=== PATIENT | male | born 1960 | race Two or more races ===

== ENCOUNTER → 2017-02-02 | Outpatient (CLI) | payer OTHER ==
[2017-02-02 09:45] LABS: ALBUMIN 3.9 GM/DL (3.2-5.2); ALBUMIN/GLOBULIN RATIO 1.34 (1.00-1.93); ALKALINE PHOSPHATASE 89 U/L (45-117); ALT/SGPT 29 U/L (12-78); ANION GAP 8 MEQ/L (8-16); AST/SGOT 13 U/L (15-37); BILIRUBIN,TOTAL 0.8 MG/DL (0.2-1.0); BLOOD UREA NITROGEN 17 MG/DL (7-18); CALCIUM LEVEL 8.4 MG/DL (8.5-10.1); CARBON DIOXIDE LEVEL 26 MEQ/L (21-32); CHLORIDE LEVEL 105 MEQ/L (98-107); CHOLESTEROL LEVEL 200 MG/DL (<200); CREATININE FOR GFR 0.83 MG/DL (0.70-1.30); GLOMERULAR FILTRATION RATE > 60.0 (>56); GLUCOSE, FASTING 103 MG/DL (70-105); POTASSIUM SERUM 4.3 MEQ/L (3.5-5.1); SODIUM LEVEL 139 MEQ/L (136-145); TOTAL PROTEIN 6.8 GM/DL (6.4-8.2); TRIGLYCERIDES LEVEL 92 MG/DL (<150)
== END ==
LOC: M WUC 08:04
PROVIDERS: ATTEND Nurse Practitioner Family
DX: N40.1 Benign prostatic hyperplasia with lower urinary tract symptoms (principal); R03.0 Elevated blood-pressure reading, without diagnosis of hypertension

== ENCOUNTER → 2017-03-30 | Outpatient (REF) | payer OTHER ==
[2017-03-30 18:47] LABS: CALCIUM OXALATE CRYSTALS SMALL
== END ==
LOC: M SMT 17:10
PROVIDERS: ATTEND Nurse Practitioner Women's Health
DX: R35.0 Frequency of micturition (principal)

== ENCOUNTER 2019-01-06 08:08 | Day surgery (SDC) | payer OTHER ==
[~2019-01-06] VITALS: Ht 167.6 cm; Wt 138.3 kg
[~2019-01-06 08:08] MED LIST: FLOM0.4C39; LIDOCAINE 2% INJ 100 MG/5 ML SDV (FOR ANES.) As Ordered ONE; OMEP40CA2; PANT40TA3; PROPOFOL 200 MG/20 ML VIAL As Ordered ONE
[2019-01-06] MEDS ORDERED: fentaNYL 100 MCG/2 ML INJECTION (J3010) As Ordered ONE (08:28)
[2019-01-06] MEDS ORDERED: NS 1,000 ML IV SCH (08:30)
[2019-01-06] MEDS ORDERED: PROPOFOL 200 MG/20 ML VIAL As Ordered ONE (09:29)
--- NOTE | 2019-01-06 09:56 | ROOR ---
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 Procedure: Pre-Anesthesia Assessment: - Prior to the procedure, a History and Physical was performed, and patient medications and allergies were reviewed. The patient is competent. The risks and benefits of the procedure and the sedation options and risks were discussed with the patient. All questions were answered and informed consent was obtained. Patient identification and proposed procedure were verified by the physician, the nurse and the anesthesiologist in the procedure room. Mental Status Examination: alert and oriented. Airway Examination: normal oropharyngeal airway and neck mobility. Respiratory Examination: clear to auscultation. CV Examination: normal. Prophylactic Antibiotics: The patient does not require prophylactic antibiotics. Prior Anticoagulants: The patient has taken no previous anticoagulant or antiplatelet agents. ASA Grade Assessment: III - A patient with severe systemic disease. After reviewing the risks and benefits, the patient was deemed in satisfactory condition to undergo the procedure. The anesthesia plan was to use monitored anesthesia care (MAC). Immediately prior to administration of medications, the patient was re-assessed for adequacy to receive sedatives. The heart rate, respiratory rate, oxygen saturations, blood pressure, adequacy of pulmonary ventilation, and response to care were monitored throughout the procedure. The physical status of the patient was re-assessed after the procedure. The Endoscope was introduced through the mouth, and advanced to the second part of duodenum. The upper GI endoscopy was accomplished without difficulty. The patient tolerated the procedure well. Findings: No endoscopic abnormality was evident in the esophagus to explain the patient's complaint of dysphagia. Biopsies were obtained from the proximal and distal esophagus with cold forceps for histology of suspected eosinophilic esophagitis. Verification of patient identification for the specimen was done by the physician and nurse using the patient's name, date and medical record number. Estimated blood loss was minimal. The Z-line was regular and was found in the distal esophagus. Patchy mild inflammation characterized by erythema and granularity was found in the gastric antrum. Biopsies were taken with a cold forceps for Helicobacter pylori testing. The duodenal bulb and second portion of the duodenum were normal. Biopsies for histology were taken with a cold forceps for evaluation of celiac disease. Impression: - No endoscopic esophageal abnormality to explain patient's dysphagia. Biopsied. - Z-line regular, in the distal esophagus. - Gastritis. Biopsied. - Normal duodenal bulb and second portion of the duodenum. Biopsied. Recommendation: - Patient has a contact number available for emergencies. The signs and symptoms of potential delayed complications were discussed with the patient. Return to normal activities tomorrow. Written discharge instructions were provided to the patient. - High fiber diet. - Continue present medications. - Follow an antireflux regimen. - Await pathology results. - Based on the biopsy results you will receive a phone call from GI clinic in 2-3 weeks to review the pathology results AND/OR your results will be faxed to your Primary care physician. - Return to primary care physician. Flavio Danielle MD Flavio Danielle MD 01/06/2019 9:56:24 AM Electronically signed by Flavio Danielle MD Number of Addenda: 0 Note Initiated On: 01/06/2019 8:36 AM Estimated Blood Loss: Estimated blood loss was minimal.
[2019-01-06 10:13] VITALS: BP 110/69
--- NOTE | 2019-01-06 10:35 | ROOR ---
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 Procedure: Pre-Anesthesia Assessment: - Prior to the procedure, a History and Physical was performed, and patient medications and allergies were reviewed. The patient is competent. The risks and benefits of the procedure and the sedation options and risks were discussed with the patient. All questions were answered and informed consent was obtained. Patient identification and proposed procedure were verified by the physician, the nurse and the anesthesiologist in the procedure room. Mental Status Examination: alert and oriented. Airway Examination: normal oropharyngeal airway and neck mobility. Respiratory Examination: clear to auscultation. CV Examination: normal. Prophylactic Antibiotics: The patient does not require prophylactic antibiotics. Prior Anticoagulants: The patient has taken no previous anticoagulant or antiplatelet agents. ASA Grade Assessment: III - A patient with severe systemic disease. After reviewing the risks and benefits, the patient was deemed in satisfactory condition to undergo the procedure. The anesthesia plan was to use monitored anesthesia care (MAC). Immediately prior to administration of medications, the patient was re-assessed for adequacy to receive sedatives. The heart rate, respiratory rate, oxygen saturations, blood pressure, adequacy of pulmonary ventilation, and response to care were monitored throughout the procedure. The physical status of the patient was re-assessed after the procedure. The Colonoscope was introduced through the anus and advanced to the cecum, identified by appendiceal orifice and ileocecal valve. The colonoscopy was performed without difficulty. The patient tolerated the procedure well. The quality of the bowel preparation was good. The ileocecal valve, appendiceal orifice, and rectum were photographed. Scope insertion time was 3 minutes. Scope withdrawal time was 12 minutes. The total duration of the procedure was 15 minutes. Findings: The perianal and digital rectal examinations were normal. The ileocecal valve was moderately lipomatous. Biopsies were taken with a cold forceps for histology. Verification of patient identification for the specimen was done by the physician and nurse using the patient's name, date and medical record number. Estimated blood loss was minimal. Five sessile polyps were found in the recto-sigmoid colon and transverse colon. The polyps were 5 to 9 mm in size. These polyps were removed with a cold snare. Resection and retrieval were complete. Multiple small and large-mouthed diverticula were found from sigmoid to ascending colon. There was no evidence of diverticular bleeding. Non-bleeding external and internal hemorrhoids were found during retroflexion. The hemorrhoids were medium-sized. Impression: - Lipomatous ileocecal valve. Biopsied. - Five 5 to 9 mm polyps at the recto-sigmoid colon and in the transverse colon, removed with a cold snare. Resected and retrieved. - Severe diverticulosis from sigmoid to ascending colon. There was no evidence of diverticular bleeding. - Non-bleeding external and internal hemorrhoids. Recommendation: - Patient has a contact number available for emergencies. The signs and symptoms of potential delayed complications were discussed with the patient. Return to normal activities tomorrow. Written discharge instructions were provided to the patient. - High fiber diet. - Continue present medications. - Await pathology results. - Repeat colonoscopy in 1- 3 years for surveillance based on pathology results. - Based on the biopsy results you will receive a phone call from GI clinic in 2-3 weeks to review the pathology results AND/OR your results will be faxed to your Primary care physician. - Return to primary care physician. Flavio Danielle MD Flavio Danielle MD 01/06/2019 10:35:18 AM Electronically signed by Flavio Danielle MD Number of Addenda: 0 Note Initiated On: 01/06/2019 8:36 AM Estimated Blood Loss: Estimated blood loss was minimal.
== END 2019-01-06 10:44 | disposition home or self-care (01) ==
LOC: M OPP 08:08
PROVIDERS: ATTEND Internal Medicine Gastroenterology
DX: Z12.11 Encounter for screening for malignant neoplasm of colon (principal); Z86.010 Personal history of colon polyps; K63.89 Other specified diseases of intestine; D12.7 Benign neoplasm of rectosigmoid junction; D12.3 Benign neoplasm of transverse colon; K64.8 Other hemorrhoids; K57.30 Diverticulosis of large intestine without perforation or abscess without bleeding; R13.10 Dysphagia, unspecified; K29.70 Gastritis, unspecified, without bleeding; R12 Heartburn; Z79.899 Other long term (current) drug therapy
CPT/HCPCS: 43239; 45380; 45385; 88305; J3010

== ENCOUNTER → 2019-02-07 | Outpatient (CLI) | payer OTHER ==
[~2019-02-07] MED LIST changes: -LIDOCAINE 2% INJ 100 MG/5 ML SDV (FOR ANES.) As Ordered ONE; -PROPOFOL 200 MG/20 ML VIAL As Ordered ONE
--- NOTE | 2019-02-07 15:04 | REP ---
Left shoulder four views: There is no fracture or dislocation. 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 The glenohumeral joint is unremarkable. There are no calcifications or foreign bodies. Mineralization is normal. Impression: There is no fracture or dislocation. Acromioclavicular osteoarthritis. Electronically Signed by Michael Davis MD 02/07/2019 02:56 P
== END ==
LOC: M WUC 13:38
PROVIDERS: ATTEND Physician Assistant
DX: S43.402D Unspecified sprain of left shoulder joint, subsequent encounter (principal); W18.30XD Fall on same level, unspecified, subsequent encounter; Y92.009 Unspecified place in unspecified non-institutional (private) residence as the place of occurrence of the external cause

== ENCOUNTER → 2019-03-03 | Outpatient (CLI) | payer OTHER ==
[~2019-03-03] MED LIST changes: -OMEP40CA2; +OMEP40CA97
--- NOTE | 2019-03-03 17:17 | REP ---
MRI LEFT SHOULDER: TECHNIQUE: Axial T2 fat sat, gradient echo, sagittal oblique T2 fat sat, coronal oblique T1, T2 fat sat. There is ill-defined high signal on T2 weighted images involving the supraspinatus and infraspinatus tendons compatible with a moderate degree of tendinopathy with possibly a partial tear of the distal infraspinatus tendon. There are moderate hypertrophic degenerative changes of the acromioclavicular joint with mild fluid in the joint. Acromion is type 1. Biceps tendon is within the bicipital groove with a very small amount of surrounding fluid. There is no Hill Sach's deformity. The deltoid muscle demonstrates no abnormal signal. There is fraying of the biceps labral complex. There also appears to be a tear of the underlying superior labrum anterior aspect. Other portion of the labrum appear intact. There is no bone marrow edema or occult fracture. There is a small joint effusion. No paralabral cyst is seen. IMPRESSION: Moderate supraspinatus and infraspinatus tendinopathy/tendinitis with probable partial tear distally of the infraspinatus tendon. Moderate hypertrophic degenerative changes of the acromioclavicular joint. Fraying of the biceps labral complex. There also appears to be a tear of the underlying superior labrum, anterior portion. Small joint effusion. Electronically Signed by Michael Guerra MD 03/06/2019 11:27 A
== END ==
LOC: M RAD 10:09
PROVIDERS: ATTEND Orthopaedic Surgery Sports Medicine
DX: M25.512 Pain in left shoulder (principal)

== ENCOUNTER → 2019-05-25 | Outpatient (CLI) | payer OTHER ==
[2019-05-25 11:53] LABS: ALT/SGPT 36 U/L (12-78); BILIRUBIN,TOTAL 0.5 MG/DL (0.2-1.0); BLOOD UREA NITROGEN 16 MG/DL (7-18); CALCIUM LEVEL 8.7 MG/DL (8.5-10.1); CARBON DIOXIDE LEVEL 28 MEQ/L (21-32); CHLORIDE LEVEL 103 MEQ/L (98-107); CREATININE FOR GFR 0.88 MG/DL (0.70-1.30); GLOMERULAR FILTRATION RATE > 60.0 (>56); GLUCOSE, FASTING 84 MG/DL (70-100); POTASSIUM SERUM 4.7 MEQ/L (3.5-5.1); SODIUM LEVEL 138 MEQ/L (136-145); TOTAL PROTEIN 6.8 GM/DL (6.4-8.2)
== END ==
LOC: M WUC 08:03
PROVIDERS: ATTEND Nurse Practitioner Family
DX: E66.01 Morbid (severe) obesity due to excess calories (principal); R03.0 Elevated blood-pressure reading, without diagnosis of hypertension

== ENCOUNTER → 2022-06-25 | Outpatient (CLI) | payer OTHER ==
[~2022-06-25] MED LIST changes: +CITA20TA6 PO; +CVS1CHW13 PO; +MELO15TA28 PO; +OMEP40CA4; -OMEP40CA97; +PANT40TA29; -PANT40TA3; +ROSU10TA6 PO
== END ==
LOC: M LABSMTC 10:07
PROVIDERS: ATTEND Anesthesiology
DX: Z01.812 Encounter for preprocedural laboratory examination (principal); Z20.822 Contact with and (suspected) exposure to COVID-19

== ENCOUNTER 2022-06-30 08:20 | Day surgery (SDC) | payer OTHER ==
[~2022-06-30] VITALS: Ht 167.6 cm; Wt 145.1 kg
[~2022-06-30 08:20] MED LIST changes: +NS 1,000 ML IV ONE
[2022-06-30 10:40] VITALS: BP 138/85
== END 2022-06-30 10:47 | disposition home or self-care (01) ==
LOC: M OPP 08:20
PROVIDERS: ATTEND Internal Medicine Gastroenterology
DX: Z86.010 Personal history of colon polyps (principal); D12.6 Benign neoplasm of colon, unspecified; K57.30 Diverticulosis of large intestine without perforation or abscess without bleeding; K64.8 Other hemorrhoids; K63.89 Other specified diseases of intestine; E78.5 Hyperlipidemia, unspecified; K21.9 Gastro-esophageal reflux disease without esophagitis; M19.90 Unspecified osteoarthritis, unspecified site; N40.0 Benign prostatic hyperplasia without lower urinary tract symptoms; Z79.899 Other long term (current) drug therapy

== ENCOUNTER → 2023-03-16 | Outpatient (CLI) | payer OTHER ==
[~2023-03-16] MED LIST changes: -NS 1,000 ML IV ONE
== END ==
LOC: M SLEEP 20:00
PROVIDERS: ATTEND Physician Assistant
DX: G47.33 Obstructive sleep apnea (adult) (pediatric) (principal)

== ENCOUNTER → 2023-12-23 | Day surgery (SDC) | payer OTHER ==
[~2023-12-23] VITALS: Ht 167.6 cm; Wt 142.9 kg
[~2023-12-23] MED LIST changes: +CO Q200C10 PO; +ECOT81TA5 PO; -FLOM0.4C39; +FLOM0.4C39 PO; +NS 1,000 ML IV ONE; -PANT40TA29; +PANT40TA29 PO; -ROSU10TA6 PO; +ROSU10TA61 PO; +SEMA1PEN2 SQ
[2023-12-23 11:48] VITALS: TEMP 97.5; O2SAT 96
== END | disposition home or self-care (01) ==
LOC: M OPP 11:44
PROVIDERS: ATTEND Internal Medicine Gastroenterology
DX: Z86.010 Personal history of colon polyps (principal); Z53.8 Procedure and treatment not carried out for other reasons

== ENCOUNTER 2024-03-30 18:20 | Emergency (ER) | payer OTHER ==
[~2024-03-30] VITALS: Ht 170.2 cm; Wt 142.0 kg
[~2024-03-30 18:20] MED LIST changes: -NS 1,000 ML IV ONE
[2024-03-30 19:04] LABS: BASO % 0.4 % (0.0-1.0); EOS # 0.1 10^3/uL (0.0-0.5); EOS % 2.2 % (0.0-3.0); HEMOGLOBIN 13.9 g/dl (13.5-17.5); LYMPH # 1.1 10^3/uL (1.5-5.0); LYMPH % 21.6 % (24.0-44.0); MEAN CORPUSCULAR HEMOGLOBIN 30.4 pg (27.0-33.0); MEAN CORPUSCULAR HGB CONC 33.9 g/dl (32.0-36.5); MEAN CORPUSCULAR VOLUME 89.7 fl (80.0-96.0); MONO # 0.4 10^3/uL (0.0-0.8); MONO % 8.3 % (2.0-8.0); NEUTROPHILS # 3.3 10^3/uL (1.5-8.5); NEUTROPHILS % 66.9 % (36.0-66.0); PLATELET COUNT, AUTOMATED 188 10^3/uL (150-450); RED BLOOD COUNT 4.57 10^6/uL (4.30-6.10)
[2024-03-30 19:09] VITALS: TEMP 98
[2024-03-30 19:43] LABS: BLOOD UREA NITROGEN 22 MG/DL (9-23); CALCIUM LEVEL 9.1 MG/DL (8.3-10.6); CARBON DIOXIDE LEVEL 27 MMOL/L (20-31); CHLORIDE LEVEL 108 MMOL/L (98-107); CREATININE FOR GFR 0.83 MG/DL (0.70-1.30); GLOMERULAR FILTRATION RATE > 60.0 (>49); GLUCOSE, FASTING 100 MG/DL (74-106); SODIUM LEVEL 140 MMOL/L (136-145)
[2024-03-30 19:44] LABS: CK-MB VALUE MASS < 1.0 NG/ML (<3.6)
[2024-03-30 19:50] LABS: CPK CREATINE PHOSPHOKINASE 69 U/L (46-171); MB/CK RELATIVE INDEX 1.44 (< OR =4)
[2024-03-30 20:13] LABS: CK-MB VALUE MASS < 1.0 NG/ML (<3.6)
[2024-03-30 20:18] LABS: CPK CREATINE PHOSPHOKINASE 50 U/L (46-171)
[2024-03-30] MEDS ORDERED: ISOVUE-370 76% 100ML VIAL As Ordered ONE (20:54)
[2024-03-30 21:13] LABS: LIPASE 40 U/L (12-53)
[2024-03-30 21:15] LABS: ALBUMIN 3.8 G/DL (3.2-5.2); ALKALINE PHOSPHATASE 97 U/L (46-116); ALT/SGPT 21 U/L (7.0-40); AST/SGOT 11 U/L (<34); BILIRUBIN,DIRECT 0.2 MG/DL (<0.4); BILIRUBIN,TOTAL 0.6 MG/DL (0.3-1.2); TOTAL PROTEIN 6.4 G/DL (5.7-8.2)
[2024-03-30 21:33] VITALS: BP 142/76; O2SAT 94
== END 2024-03-30 23:18 | disposition home or self-care (01) ==
LOC: M ED 18:20
DX: R07.89 Other chest pain (principal); I51.7 Cardiomegaly; R16.1 Splenomegaly, not elsewhere classified; K57.30 Diverticulosis of large intestine without perforation or abscess without bleeding; M48.061 Spinal stenosis, lumbar region without neurogenic claudication; E78.5 Hyperlipidemia, unspecified; K21.9 Gastro-esophageal reflux disease without esophagitis; N40.0 Benign prostatic hyperplasia without lower urinary tract symptoms; Z87.891 Personal history of nicotine dependence; Z79.82 Long term (current) use of aspirin; Z79.4 Long term (current) use of insulin; Z79.899 Other long term (current) drug therapy; Z91.030 Bee allergy status
CPT/HCPCS: 71045; 71275; 74177; 80048; 80076; 82550; 82553; 83690; 84484; 85025; 93005; 93041; 94760; 99284; Q9967

== ENCOUNTER → 2024-05-19 | Outpatient (CLI) | payer OTHER | LOC: M WUC 10:01 | PROVIDERS: ATTEND Internal Medicine | DX: M54.32 Sciatica, left side (principal) ==

== ENCOUNTER 2024-05-23 06:47 | Day surgery (SDC) | payer OTHER ==
[~2024-05-23] VITALS: Ht 170.2 cm; Wt 141.4 kg
[~2024-05-23 06:47] MED LIST changes: +NS 250 ML IV ONE
[2024-05-23] MEDS ORDERED: propofoL 200 MG/20 ML VIAL As Ordered ONE (06:53)
[2024-05-23] MEDS ORDERED: LIDOCAINE 2% 100MG/5ML SDV (FOR ANES.) As Ordered ONE (06:53)
[2024-05-23] MEDS ORDERED: GLYCOPYRROLATE INJ 0.2 MG/ML 2 ML VIAL As Ordered ONE (08:36)
[2024-05-23 08:47] VITALS: TEMP 99.1
[2024-05-23 09:04] VITALS: BP 127/75; O2SAT 95
== END 2024-05-23 09:16 | disposition home or self-care (01) ==
LOC: M OPP 06:47
PROVIDERS: ATTEND Internal Medicine Gastroenterology
DX: Z86.0100 Personal history of colon polyps, unspecified (principal); K57.30 Diverticulosis of large intestine without perforation or abscess without bleeding; K64.8 Other hemorrhoids; K63.89 Other specified diseases of intestine; E78.5 Hyperlipidemia, unspecified; K21.9 Gastro-esophageal reflux disease without esophagitis; G47.33 Obstructive sleep apnea (adult) (pediatric); N40.0 Benign prostatic hyperplasia without lower urinary tract symptoms; K44.9 Diaphragmatic hernia without obstruction or gangrene; Z99.89 Dependence on other enabling machines and devices; Z91.030 Bee allergy status; Z79.82 Long term (current) use of aspirin; Z79.899 Other long term (current) drug therapy
CPT/HCPCS: 45378; J1596

== ENCOUNTER → 2025-06-29 | Outpatient (CLI) | payer OTHER ==
[~2025-06-29] MED LIST changes: -FLOM0.4C39 PO; -NS 250 ML IV ONE; -ROSU10TA61 PO; +ROSU10TA90 PO; +TAMS-18 PO
== END ==
LOC: M WUC 13:44
PROVIDERS: ATTEND Physician Assistant
DX: M25.762 Osteophyte, left knee (principal); M25.562 Pain in left knee